=== PATIENT | female | born 1995 | race Caucasian/White ===

== ENCOUNTER 2018-01-15 12:29 | Emergency (ER) | payer BC ==
[~2018-01-15] VITALS: Ht 165.1 cm; Wt 68.2 kg
[2018-01-15 12:33] VITALS: TEMP 36.5; Ht 165.1 cm; Wt 68.2 kg
[2018-01-15] MEDS ORDERED: CIPRO 0.2%/HYDROCORTISONE 1% OTIC SUSP 10 ML BTL OT ONE (13:00)
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
[2018-01-15 14:46] VITALS: BP 88/53; PULSE 76; O2SAT 98
== END 2018-01-15 14:47 | disposition home or self-care (01) ==
LOC: C.EDB 12:30
DX: R07.89 Other chest pain (principal); H60.92 Unspecified otitis externa, left ear; Z87.828 Personal history of other (healed) physical injury and trauma; F17.210 Nicotine dependence, cigarettes, uncomplicated; Z88.2 Allergy status to sulfonamides

== ENCOUNTER 2025-01-16 08:00 | Inpatient (IN) ==
[2025-01-16] MEDS: ACETAMINOPHEN 1,000 MG/100 ML VIAL IV STA ×2 (09:03→13:53)
[2025-01-16] MEDS: dexAMETHasone**PF** 10 MG/ML VIAL IV ONE (09:04)
[2025-01-16] MEDS: METHOCARBAMOL 500 MG TABLET PO STA (09:06)
[2025-01-16 09:11] LABS: Basophils # (auto) 0.06 K/uL (0.00-0.20); Basophils % (auto) 0.9 %; Eosinophils # (auto) 0.09 K/uL (0.00-0.50); Eosinophils % (auto) 1.4 %; Hematocrit (blood only) 39.5 % (37.0-47.0); Hemoglobin 13.5 g/dl (12.0-16.0); Immature Granulocytes # (auto) 0.01 K/uL (0.01-0.20); Immature Granulocytes % (auto) 0.2 %; Lymphocytes # (auto) 1.69 K/uL (1.20-3.40); Lymphocytes % (auto) 26.4 %; Mean Corpuscular Hemoglobin 30.9 pg (25.0-34.0); Mean Corpuscular Hgb Conc 34.2 g/dL (32.0-36.0); Mean Corpuscular Volume 90.4 fL (80.0-100.0); Mean Platelet Volume 10.9 fL (9.4-12.4); Monocytes # (auto) 0.45 K/uL (0.11-0.59); Neutrophils % (auto) 64.1 %; Platelet Count 267 K/uL (130-400); RDW Coefficient of Variation 12.1 % (11.5-14.5); RDW Standard Deviation 40.2 fL (36.4-46.3); Red Blood Count 4.37 M/uL (4.20-5.40)
[2025-01-16 09:26] LABS: Pregnancy Test, Serum Negative (Negative)
--- NOTE | 2025-01-16 09:26 | Emergency Department Note ---
Impression & Plan Cervical radiculopathy, Neck pain on left side, Left arm weakness ED Provider Note ED Provider Note NAME: JARVIS NÚÑEZ AGE:29 SEX: Female : 1995 ARRIVES VIA: Private vehicle INFORMANT: Patient ED PROVIDER(s): Susan Holley DO CHIEF COMPLAINT: Left arm pain and numbness HPI: This is a 29-year-old female who presents emergency room complaining of left neck pain. She states symptoms began a little over a week ago and she thought it was related to stress that she was getting . She states pain was persistent however she was taking Tylenol and ibuprofen with some mild improvement. She states she began to feel a sense of heaviness and weakness in her left arm by Thursday and Thursday. She states yesterday she noticed a sense of "[id number]" in her thumb, pointer, and middle finger on the left hand. She states it now seems as though ibuprofen is not helping as much. Patient states she does have a prior history of low back problems with the prior herniated disc in her low back. She states in addition to the OTC meds she has been trying to massage the area and apply heat without any significant relief. She has pain with movement of the head and pain with moving the arm. No recent trauma or change in activity otherwise. No history of carpal tunnel. Patient states she took ibuprofen at 630 this morning. PAST MEDICAL HISTORY:See Below PAST SURGICAL HISTORY:See Below FAMILY HISTORY:See Below SOCIAL HISTORY:See Below HOME MEDICATIONS:See Below ALLERGIES:See Below VITALS:See Below PHYSICAL EXAMINATION: GENERAL: alert, well appearing, well nourished, no distress, non-toxic EYE EXAM: normal conjunctiva, PERRL and EOM's grossly intact OROPHARYNX: no exudate, no erythema, lips, buccal mucosa, and tongue normal and mucous membranes are moist NECK: supple, no nuchal rigidity, no adenopathy, non-tender, decreased range of motion secondary to pain, symptoms in the left upper extremity are worse with flexion of the head, and turning the head rightward. Patient does have increased hypertonicity in the left paraspinal muscles and into the left trapezius LUNGS: Clear to auscultation. Normal chest wall mechanics, no w/r/r HEART: no murmurs, S1 normal and S2 normal ABDOMEN: abdomen soft, non-tender, normo-active bowel sounds, no masses, no rebound or guarding. BACK: Back is symmetrical on inspection and there is no deformity, midline tenderness at the C/T junction SKIN: no rashes, petechiae, orbruising UPPER EXTREMITIES: upper extremities are grossly normal. FROM, nml pulses b/l. Subjective decreased sensation with light touch along the left upper extremity starting around the elbow and extending distally into the 1st, 2nd and 3rd digits, no evidence of edema, no evidence of trauma, no bony tenderness with palpation, negative Phalen's and Tinels; +2/4 brachial radialis and biceps reflexes bilaterally. Weakness with strength testing to the left upper extremity. LOWER EXTREMITIES: No pitting edema. FROM, nml pulses b/l. NEURO EXAM: Normal sensorium, cranial nerves II-XII grossly intact, normal speech, no facial droop,nogross weakness of arms, no gross weakness of legs. Gross sensation intact. No ataxia. Vital Signs: reviewed and remarkable Differential Diagnosis: Cervical radiculopathy, disc herniation, discitis, occult fracture, musculoskeletal pain, trigeminal neuralgia, brachial plexitis, rotator cuff injury, carpal tunnel, as well as others were considered MEDICAL DECISION MAKING: This is a 29-year-old female who presents emergency department due to concern for worsening left-sided neck pain with accompanying left upper extremity pain, weakness, and paresthesias. Patient was afebrile and hemodynamically stable. No recent trauma. After discussion at bedside, labs drawn and sent, IV established, patient monitored on telemetry. Patient sent for CT of the C-spine initially which did show a large disc extrusion. Patient was started on IV fluids and given IV Tylenol, IV magnesium, IV Decadron, and oral Robaxin. Patient had persistent symptoms. She was offered IV morphine but declined citing a bad reaction to it in the past so IV fentanyl was given. Patient received several doses of this without any significant improvement. I did discuss the CT findings with Dr. Yee of spine who recommended MRI and close outpatient follow-up in the office if her symptoms could be controlled. Due to ongoing symptoms, patient sent for MRI C-spine without contrast. Patient had persistent symptoms. She was given IV Valium additionally, as well as gabapentin. Patient's MRI findings were discussed with Dr. Yee additionally. Due to persistent weakness, paresthesias, and inability to adequately control patient's pain so that she could go home and follow-up as an outpatient, we discussed further inpatient management. Case discussed with the [facility] hospitalist team for further evaluation and management. At this time I do not suspect occult infectious etiology, dissection, occult fracture, or other acute JUDICIAL ADMINISTRATIVE ASSISTANT pathology. Consultation(s): 1132: Discussed with Dr. Yee, spine. Recommends MR C-spine without and close follow-up in the office. 1450: Discussed with Dr. Yee again. 1555: Discussed with Tammie, [facility] Hospitalist team, for additional evaluation and mgmt. ER Treatment Provided: See below Diagnostics Interpreted By Me: -Cardiac Monitoring: An order was placed for continuous cardiac monitoring. The monitor shows a rate of 62 with normal sinus rhythm. -Laboratory studies: As stated above and show below. -Imaging studies: ct cspine - disc extrusion noted, no fx Triage Nursing Note Reviewed Prior/Outside Records Reviewed Past Med/Surg History Problem List (Updated 01/16/25 @ 17:24 by Susan Holley DO) Left arm weakness (Acute) Neck pain on left side (Acute) Cervical radiculopathy (Acute) Medical History (Updated 01/16/25 @ 17:24 by Susan Holley DO) History of pancreatitis gallstone, s/p jaquan Anxiety PTSD (post-traumatic stress disorder) Mild intermittent asthma Surgical History (Updated 01/16/25 @ 16:24 by Donya Cheng PA-C) S/P cholecystectomy Social History (Updated 01/16/25 @ 16:25 by Donya Cheng PA-C) Smoking Status: Never smoker Hx Alcohol Use: Yes marital status: current occupational status: employed 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[employer] Feels Safe at Home: Yes Allergies Allergies Allergy/AdvReac Type Severity Reaction Status Date / Time Bactrim AdvReac Intermediate RASH Unverified 01/15/18 12:44 sulfamethoxazole [Bactrim] AdvReac Intermediate RASH Unverified 01/16/25 10:50 trimethoprim [Bactrim] AdvReac Intermediate RASH Unverified 01/16/25 10:50 morphine AdvReac Unknown Verified 01/16/25 10:50 Home Meds Home Medications Medication Instructions Recorded Confirmed clonazepam 0.5 mg tablet (Klonopin) 0.5 mg PO HS PRN Anxiety 01/16/25 01/16/25 magnesium 200 mg tablet 200 mg PO DAILY 01/16/25 01/16/25 Results & Data (ED) Vital Signs Vital Signs - 24 hr 01/16/25 08:11 01/16/25 08:23 01/16/25 08:36 Temperature 36.8 C Temperature Source Oral Pulse Rate 87 80 Pulse Rate [Apical] 61 Pulse Rhythm [Apical] Pulse Strength [Apical] Respiratory Rate 18 20 Respiratory Effort / Characteristics Non-Labored Respiratory Depth Normal Respiratory Pattern Blood Pressure 125/88 Blood Pressure [Right Arm] 111/69 Blood Pressure Mean 100 Blood Pressure Mean [Right Arm] 83 Blood Pressure Position Sitting Blood Pressure Position [Right Arm] Pulse Oximetry 98 98 Oxygen Delivery Method Room Air Room Air Sepsis Recent Fever Within 48 Hours No Sepsis New/Unexplained Change in Mental Status No Sepsis Action Taken by Nursing No Action Required 01/16/25 09:07 01/16/25 09:50 01/16/25 10:22 Temperature Temperature Source Pulse Rate Pulse Rate [Apical] 72 65 64 Pulse Rhythm [Apical] Pulse Strength [Apical] Respiratory Rate 20 20 20 Respiratory Effort / Characteristics Non-Labored Non-Labored Non-Labored Respiratory Depth Normal Normal Normal Respiratory Pattern Blood Pressure Blood Pressure [Right Arm] 115/75 100/58 L 104/63 Blood Pressure Mean Blood Pressure Mean [Right Arm] 88 72 76 Blood Pressure Position Blood Pressure Position [Right Arm] Pulse Oximetry 98 97 97 Oxygen Delivery Method Room Air Room Air Room Air Sepsis Recent Fever Within 48 Hours Sepsis New/Unexplained Change in Mental Status Sepsis Action Taken by Nursing 01/16/25 10:45 01/16/25 12:22 01/16/25 15:34 Temperature Temperature Source Pulse Rate Pulse Rate [Apical] 53 L 60 70 Pulse Rhythm [Apical] Regular Regular Pulse Strength [Apical] Normal Normal Respiratory Rate 20 20 20 Respiratory Effort / Characteristics Non-Labored Spontaneous Non-Labored Spontaneous Respiratory Depth Normal Normal Respiratory Pattern Regular Regular Blood Pressure Blood Pressure [Right Arm] 116/76 106/59 L 100/65 Blood Pressure Mean Blood Pressure Mean [Right Arm] 89 74 76 Blood Pressure Position Blood Pressure Position [Right Arm] Sitting Sitting Pulse Oximetry 97 95 96 Oxygen Delivery Method Room Air Room Air Room Air Sepsis Recent Fever Within 48 Hours Sepsis New/Unexplained Change in Mental Status Sepsis Action Taken by Nursing 01/16/25 17:29 Temperature Temperature Source Pulse Rate Pulse Rate [Apical] 77 Pulse Rhythm [Apical] Pulse Strength [Apical] Respiratory Rate 20 Respiratory Effort / Characteristics Respiratory Depth Respiratory Pattern Blood Pressure Blood Pressure [Right Arm] 102/62 Blood Pressure Mean Blood Pressure Mean [Right Arm] 75 Blood Pressure Position Blood Pressure Position [Right Arm] Pulse Oximetry 98 Oxygen Delivery Method Sepsis Recent Fever Within 48 Hours Sepsis New/Unexplained Change in Mental Status Sepsis Action Taken by Nursing Laboratory Data 01/16/25 08:57 01/16/25 08:57 Lab Results 01/16/25 Range/Units 08:57 WBC 6.40 (4.8-10.8) K/ul RBC 4.37 (4.20-5.40) M/uL Hgb 13.5 (12.0-16.0) g/dl Hct 39.5 (37.0-47.0) % MCV 90.4 (80.0-100.0) fL MCH 30.9 (25.0-34.0) pg MCHC 34.2 (32.0-36.0) g/dL RDW Std Deviation 40.2 (36.4-46.3) fL RDW Coeff of Francis 12.1 (11.5-14.5) % Plt Count 267 (130-400) K/uL MPV 10.9 (9.4-12.4) fL Immature Gran % (Auto) 0.2 % Neut % (Auto) 64.1 % Lymph % (Auto) 26.4 % Amador % (Auto) 7.0 % Eos % (Auto) 1.4 % Baso % (Auto) 0.9 % Neut # (Auto) 4.10 (1.40-6.50) K/uL Lymph # (Auto) 1.69 (1.20-3.40) K/uL Amador # (Auto) 0.45 (0.11-0.59) K/uL Eos # (Auto) 0.09 (0.00-0.50) K/uL Baso # (Auto) 0.06 (0.00-0.20) K/uL Immature Gran # (Auto) 0.01 (0.01-0.20) K/uL Sodium 139 (136-145) mmol/L Potassium 3.6 (3.5-5.1) mmol/L Chloride 105 (98-107) mmol/L Carbon Dioxide 27 (21-32) mmol/L Anion Gap 7 (3-11) BUN 13 (6-23) mg/dl Creatinine 0.67 (0.6-1.2) mg/dl Est Cr Clr Drug Dosing 122.5 ml/min eGFR 119.76 BUN/Creatinine Ratio 19.4 (10-20) Glucose 93 (70-99(Fasting)) mg/dl Calcium 9.3 (8.6-10.3) mg/dl Total Bilirubin 0.8 (0.2-1.0) mg/dl AST 22 (13-39) U/L ALT 15 (7-52) U/L Alkaline Phosphatase 50 (34-104) U/L Total Protein 7.4 (6.0-8.3) gm/dl Albumin 4.5 (3.4-5.0) gm/dl Globulin 2.9 (2.5-4.0) gm/dl Albumin/Globulin Ratio 1.6 (0.9-2) HCG, Qual Negative (Negative) Administered Medications Fentanyl Citrate (Fentanyl Citrate Pf 100 Mcg/2 Ml Vial) 50 mcg IV Q15M PRN PRN Reason: Pain Stop: 01/30/25 11:36 Last Admin: 01/16/25 12:11 Dose: 50 mcg Documented By: NIC Hydromorphone HCl (Hydromorphone Inj 0.5 Mg/0.5 Ml Syr) 0.5 mg IV Q15M PRN PRN Reason: Pain Stop: 01/30/25 15:27 Last Admin: 01/16/25 16:13 Dose: 0.5 mg Documented By: Admin: 01/16/25 15:31 Dose: 0.5 mg Documented By: RIN Discontinued Medications Dexamethasone Sodium Phosphate (DexamethasonePf 10 Mg/Ml Vial) 10 mg IV NOW ONE Stop: 01/16/25 08:56 Last Admin: 01/16/25 09:04 Dose: 10 mg Documented By: WILLIAM Diazepam (Diazepam 5 Mg/Ml 10ml Vial) 2 mg IV NOW STA Stop: 01/16/25 13:45 Last Admin: 01/16/25 13:53 Dose: 2 mg Documented By: RIN Fentanyl Citrate (Fentanyl Citrate Pf 100 Mcg/2 Ml Vial) 50 mcg IV NOW STA Stop: 01/16/25 10:05 Last Admin: 01/16/25 10:13 Dose: 50 mcg Documented By: WILLIAM Gabapentin (Gabapentin 100 Mg Cap) 100 mg PO NOW STA Stop: 01/16/25 10:05 Last Admin: 01/16/25 10:20 Dose: 100 mg Documented By: WILLIAM Acetaminophen (Ofirmev) 1,000 mg in 100 mls @ 400 mls/hr IV NOW STA Stop: 01/16/25 09:09 Last Infusion: 01/16/25 09:22 Dose: Infused Documented By: Admin: 01/16/25 09:03 Dose: 400 mls/hr Documented By: WILLIAM Acetaminophen (Ofirmev) 1,000 mg in 100 mls @ 400 mls/hr IV NOW STA Stop: 01/16/25 13:57 Last Infusion: 01/16/25 14:08 Dose: Infused Documented By: Admin: 01/16/25 13:53 Dose: 400 mls/hr Documented By: RIN Lorazepam (Lorazepam 2 Mg/1 Ml Vial) 0.5 mg IV NOW STA Stop: 01/16/25 11:38 Last Admin: 01/16/25 12:22 Dose: 0.5 mg Documented By: NIC Methocarbamol (Methocarbamol 500 Mg Tablet) 500 mg PO NOW STA Stop: 01/16/25 08:56 Last Admin: 01/16/25 09:06 Dose: 500 mg Documented By: WILLIAM Morphine Sulfate (Morphine Sulfate 4 Mg/Ml 1 Ml Carp\\Vial) 4 mg IV NOW STA Stop: 01/16/25 10:48 Last Admin: 01/16/25 11:04 Dose: Not Given Documented By: RIN Imaging Data Radiologist's Impression: Cervical Spine CT 01/16/25 08:55 CT SCAN OF THE CERVICAL SPINE CLINICAL HISTORY: Left-sided neck pain. Left upper extremity paresthesias. COMPARISON STUDY: None. TECHNIQUE: CT scan of the cervical spine is performed from the skull base to the upper thoracic spine. Images are reviewed in the axial, sagittal, and coronal planes. IV contrast was not administered for this examination. A dose lowering technique was utilized adhering to the principles of ALARA. CT DOSE: 401.44 mGy.cm FINDINGS: Reversal of the cervical lordosis is present. There are no cervical spine fractures. There are no osseous lesions within the cervical spine. Mild to moderate multilevel disc space narrowing is most pronounced at the C6-C7 level. There is no prevertebral edema. A large left paracentral disc extrusion at C6-C7 measures 1.2 x 1.1 x 0.7 cm. This results in moderate narrowing of the left aspect of the central canal and severe narrowing of the proximal left C6-C7 neural foramen. This disc herniation contains minimal calcification. Central canal and neural foramen are suboptimally assessed given CT technique. No additional disc herniations are identified. IMPRESSION: 1. No acute cervical spine fracture or subluxation. 2. Large left paracentral disc extrusion at C6-C7 with results in severe narrowing of the proximal left C6-C7 neural foramen and moderate narrowing of the left aspect of the central canal. 3. No additional disc herniations identified although suboptimal evaluation of the central canal and neural foramen given CT technique. 4. Mild to moderate multilevel disc space narrowing. 5. Reversal of the cervical lordosis. ACT 112: Negative or not required by law. Electronically signed by: Robert Sheth M.D. 01/16/2025 9:51 AM Cervical Spine MRI 01/16/25 11:37 MR cervical spine wo con HISTORY: 29 years-old Female C6-7 large disc extrusion, LUE weakness/paresthesi acute neck pain COMPARISON: CT cervical spine of same day TECHNIQUE: Multiplanar multisequence MRI of the cervical spine was obtained without IV contrast FINDINGS: Motion degraded exam. Normal signal within the brainstem, cervical and imaged upper thoracic spinal cord. No acute fracture, subluxation, endplate erosion or marrow replacing process. No epidural or paraspinal fluid collections. C2-C3: No central canal or foraminal narrowing. C3-C4: No central canal or foraminal narrowing. C4-C5: No central canal or foraminal narrowing. C5-C6: Mild intervertebral disc space narrowing with uncovertebral hypertrophy and small circumferential annular disc bulge. No central canal or foraminal narrowing. C6-C7: Slight kyphosis centered at this level. There is mild to moderate intervertebral disc space narrowing. Uncovertebral hypertrophy with small circumferential annular disc bulge. There is a large disc extrusion which demonstrates both caudal and cephalad extension measuring up to 1.6 x 0.6 x 1.2 cm in transverse, AP and craniocaudal dimensions. This extends from the left paracentral space into the left lateral recess and left neural foramen. There is deformity upon the adjacent cervical spinal cord with AP dimension of the thecal sac measuring 6 mm. moderate central canal stenosis. Severe left lateral recess narrowing. Moderate narrowing of the proximal left neural foramen. The right neural foramen is patent. C7-T1: No central canal or foraminal narrowing. IMPRESSION: 1. Motion degraded exam. 2. Large C6-C7 left paracentral/left lateral recess disc extrusion redemonstrated causing moderate central canal stenosis with moderate narrowing of the proximal left neural foramen. 3. Mild discogenic degeneration at C5-C6. 4. Normal signal of the cervical spinal cord. 5. No acute fracture. ACT 112: Negative or not required by law. The above report was generated using voice recognition software. It may contain grammatical, syntax or spelling errors. Electronically signed by: Murphy Deng M.D. 01/16/2025 2:06 PM Discharge Plan Visit Data Chief Complaint: Arm Pain Stated Complaint: PAIN/NUMBNESS/TINGLING L ARM ED Provider: Susan Holley Discharge Problem: Cervical radiculopathy, Neck pain on left side, Left arm weakness Patient Disposition: Admitted As Inpatient Discharge Instructions Interventions: ED Discharge Assessment Last Done: 01/16/25 17:33 Forms Stand Alone Forms: [employer] Prescriptions Prescriptions: No Action clonazepam [Klonopin] 0.5 mg Tablet 0.5 mg PO HS PRN (Reason: Anxiety) Rx Instructions: administer 30 minutes before bedtime magnesium 200 mg Tablet 200 mg PO DAILY Referrals Referrals: Hemal Mcleod [Primary Care Provider] -
[2025-01-16 09:29] LABS: Albumin Globulin Ratio 1.6 (0.9-2); Albumin Level 4.5 gm/dl (3.4-5.0); BUN Creatinine Ratio 19.4 (10-20); Bilirubin,Total 0.8 mg/dl (0.2-1.0); Calcium 9.3 mg/dl (8.6-10.3); Creatinine Clr Calc Pharmacy 122.5 ml/min; Globulin 2.9 gm/dl (2.5-4.0); Potassium 3.6 mmol/L (3.5-5.1); Total Protein 7.4 gm/dl (6.0-8.3)
--- NOTE | 2025-01-16 09:52 | CT Scan Report ---
CT SCAN OF THE CERVICAL SPINE CLINICAL HISTORY: Left-sided neck pain. Left upper extremity paresthesias. COMPARISON STUDY: None. TECHNIQUE: CT scan of the cervical spine is performed from the skull base to the upper thoracic spine . Images are reviewed in the axial, sagittal, and coronal planes. IV contrast was not administered fo r this examination. A dose lowering technique was utilized adhering to the principles of ALARA. CT DOSE: 401.44 mGy.cm FINDINGS: Reversal of the cervical lordosis is present. There are no cervical spine fractures. There are no osseous lesions within the cervical spine. Mild to moderate multilevel disc space narrowing is most pronounced at the C6-C7 level. There is no prevertebral edema. A large left paracentral disc ex trusion at C6-C7 measures 1.2 x 1.1 x 0.7 cm. This results in moderate narrowing of the left aspect o f the central canal and severe narrowing of the proximal left C6-C7 neural foramen. This disc herniat ion contains minimal calcification. Central canal and neural foramen are suboptimally assessed given CT technique. No additional disc herniations are identified. IMPRESSION: 1. No acute cervical spine fracture or subluxation. 2. Large left paracentral disc extrusion at C6-C7 with results in severe narrowing of the proximal le ft C6-C7 neural foramen and moderate narrowing of the left aspect of the central canal. 3. No additional disc herniations identified although suboptimal evaluation of the central canal and neural foramen given CT technique. 4. Mild to moderate multilevel disc space narrowing. 5. Reversal of the cervical lordosis. ACT 112: Negative or not required by law. Electronically signed by: Robert Sheth M.D. 01/16/2025 9:51 AM
[2025-01-16] MEDS: fentaNYL citrate PF 100 MCG/2 ML VIAL IV STA (10:13)
[2025-01-16] MEDS: GABAPENTIN 100 MG CAP PO STA (10:20)
[2025-01-16] MEDS: MoRPHine SULFATE 4 MG/ML 1 ML CARP\\VIAL IV STA (11:04)
[2025-01-16] MEDS: fentaNYL citrate PF 100 MCG/2 ML VIAL IV PRN (12:11)
[2025-01-16] MEDS: LORazepam 2 MG/1 ML VIAL IV STA (12:22)
[2025-01-16] MEDS: diazePAM 5 MG/ML 10ML VIAL IV STA (13:53)
--- NOTE | 2025-01-16 14:08 | Magnetic Resonance Report ---
MR cervical spine wo con HISTORY: 29 years-old Female C6-7 large disc extrusion, LUE weakness/paresthesi acute neck pain COMPARISON: CT cervical spine of same day TECHNIQUE: Multiplanar multisequence MRI of the cervical spine was obtained without IV contrast FINDINGS: Motion degraded exam. Normal signal within the brainstem, cervical and imaged upper thoracic spinal c ord. No acute fracture, subluxation, endplate erosion or marrow replacing process. No epidural or par aspinal fluid collections. C2-C3: No central canal or foraminal narrowing. C3-C4: No central canal or foraminal narrowing. C4-C5: No central canal or foraminal narrowing. C5-C6: Mild intervertebral disc space narrowing with uncovertebral hypertrophy and small circumferent ial annular disc bulge. No central canal or foraminal narrowing. C6-C7: Slight kyphosis centered at this level. There is mild to moderate intervertebral disc space na rrowing. Uncovertebral hypertrophy with small circumferential annular disc bulge. There is a large di sc extrusion which demonstrates both caudal and cephalad extension measuring up to 1.6 x 0.6 x 1.2 cm in transverse, AP and craniocaudal dimensions. This extends from the left paracentral space into the left lateral recess and left neural foramen. There is deformity upon the adjacent cervical spinal co rd with AP dimension of the thecal sac measuring 6 mm. moderate central canal stenosis. Severe left l ateral recess narrowing. Moderate narrowing of the proximal left neural foramen. The right neural for amen is patent. C7-T1: No central canal or foraminal narrowing. IMPRESSION: 1. Motion degraded exam. 2. Large C6-C7 left paracentral/left lateral recess disc extrusion redemonstrated causing moderate ce ntral canal stenosis with moderate narrowing of the proximal left neural foramen. 3. Mild discogenic degeneration at C5-C6. 4. Normal signal of the cervical spinal cord. 5. No acute fracture. ACT 112: Negative or not required by law. The above report was generated using voice recognition software. It may contain grammatical, syntax o r spelling errors. Electronically signed by: Murphy Deng M.D. 01/16/2025 2:06 PM
[2025-01-16] MEDS: HYDROmorphone INJ 0.5 MG/0.5 ML SYR IV PRN ×2 (15:31→20:35)
--- NOTE | 2025-01-16 15:57 | History & Physical Report ---
Date of Service January 16, 2025 Assessment & Plan (1) Cervical radiculopathy: (2) Neck pain on left side: (3) Mild intermittent asthma: (4) Anxiety: Plan This is a 29 y/o female with hx of PTSD, anxiety, and mild intermittent asthma who presented to the ED today with progressive neck pain x 8 days. Now with weakness in the left arm, numbness and paresthesias in the left hand/fingers over the last few days. Work-up in the ED reveals large C6-C7 paracentral/left lateral recess disc extrusion causing moderate central canal stenosis with moderate narrowing of the proximal left neural foramen. MRI images personally reviewed. Pt has received multiple doses of IV medication in the ED but pain is still uncontrolled. ED provider spoke with spine surgeon data warehouse consultant who recommended admission for pain control and possible intervention. #Cervical disc extrusion at C6-C7 with moderate central canal stenosis #Cervical radiculopathy - Admit to med surg - Continue steroids - received IV dexamethasone in the ED, will start prednisone 40 mg daily in the AM - Trial of gabapentin 300 mg TID - Scheduled acetaminophen - Trial of Zanaflex for muscle relaxer - Continue PRN IV Dilaudid for pain - PT/OT evaluations to establish current functional status - Consult ortho spine for recommendations #PTSD/Anxiety - Continue prn Klonopin #Mild intermittent asthma - No symptoms at present, only uses prn albuterol inhaler, usually triggered by illness Pt seen and reviewed with collaborating physician, Dr. Infante. Plan of care discussed and as outlined above. Code status: full code DVT prophylaxis: SCDs I spent a total of 75 minutes coordinating, documenting, and providing care for this patient excluding time spent in the performance of separately billed services or time spent by another provider/QHP. Durga Cheng PA-C History of Present Illness Chief Complaint: neck pain, arm weakness Primary Care Provider: Hemal Mcleod This is a 29 y/o female with hx of PTSD, anxiety, and mild intermittent asthma who presented to the ED today with progressive neck pain x 8 days. Pt reports waking up last Thursday with pain in her left neck/upper back that felt like she slept wrong. She took ibuprofen 800 mg and initially had some relief. However, s sukhwinder then, then pain has continued to worsen in severity. It is now to the point that she has to take ibuprofen 800 mg just to be able to get out of bed. She has been alternating acetaminophen and ibuprofen without significant relief. She also tried naproxen, which didn't help. Ice felt like it made things worse so she has been using heat. Also tried various stretches she found online in hopes that something would help. Pain is radiating down her left arm. Over the last few days, she noted weakness in her left arm, specifically noting that she has dropped things even those that are light. Over the last 24-48 hours, she has developed numbness and tingling in the left thumb/2nd/3rd fingers and dorsal hand. She does not recall any prior injury to her neck although she was lifting heavier things over the last week in preparation for her wedding two days ago. She has no history of similar pain in the past. She is right-hand dominant. 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 Allergies Allergy/AdvReac Type Severity Reaction Status Date / Time Bactrim AdvReac Intermediate RASH Unverified 01/15/18 12:44 sulfamethoxazole [Bactrim] AdvReac Intermediate RASH Unverified 01/16/25 10:50 trimethoprim [Bactrim] AdvReac Intermediate RASH Unverified 01/16/25 10:50 morphine AdvReac Unknown Verified 01/16/25 10:50 Home Medications Medication Instructions Recorded Confirmed Type clonazepam 0.5 mg tablet (Klonopin) 0.5 mg PO HS PRN Anxiety 01/16/25 01/16/25 History magnesium 200 mg tablet 200 mg PO DAILY 01/16/25 01/16/25 History Past Med/Surg History Problem List (Updated 01/16/25 @ 17:24 by Susan Holley DO) Left arm weakness (Acute) Neck pain on left side (Acute) Cervical radiculopathy (Acute) Medical History (Updated 01/16/25 @ 17:24 by Susan Holley DO) History of pancreatitis gallstone, s/p jaquan Anxiety PTSD (post-traumatic stress disorder) Mild intermittent asthma Surgical History (Updated 01/16/25 @ 16:24 by Donya Cheng PA-C) S/P cholecystectomy Social History (Updated 01/16/25 @ 16:25 by Donya Cheng PA-C) Smoking Status: Former smoker Tobacco Type: E-cigarettes / Vaping Hx Alcohol Use: Yes Alcohol type: beer and hard liquor Hx Substance Use: No Preferred Language: Prydeinig Communication Ability: Effective Sweat Band Separator Required: No Beliefs That Will Affect Care: None marital status: Current Living Situation: Spouse current occupational status: employed 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[employer] Other Information That Helps Us Care for You: No Feels Safe at Home: Yes Safety Concerns: Feels Safe At This Time Assistive Devices: None Review of Systems Review of Systems: All systems reviewed & are unremarkable except as noted in Subjective Physical Exam Physical Exam: General: awake, alert, appears uncomfortable, frequently shifting positions during exam HEENT: no scleral icterus, moist oral mucosa Neck: supple, trachea midline Heart: RRR, no M/G/R Lungs: CTA bilaterally, no W/R/R Abdomen: soft, NT, +BS Skin: warm, dry, no jaundice or rashes MSK: + tender at base of left posterior neck, upper thoracic, no spinous process tenderness, decreased strength left babbitter, left thumb to finger, left arm flexion/extension Neurologic: +mildly diminished sensation left thumb and left arm in C6/C7 dermatome, left UE reflexes 2+ Results & Data Results & Data Vital Signs (Past 12 Hours) Vital Signs Temp Pulse Pulse Resp BP BP Pulse Ox 01/16/25 15:34 70 20 100/65 96 01/16/25 12:22 60 20 106/59 L 95 01/16/25 10:45 53 L 20 116/76 97 01/16/25 10:22 64 20 104/63 97 01/16/25 09:50 65 20 100/58 L 97 01/16/25 09:07 72 20 115/75 98 01/16/25 08:36 80 01/16/25 08:23 61 20 111/69 98 01/16/25 08:11 36.8 C 87 18 125/88 98 O2 Del Method 01/16/25 15:34 Room Air 01/16/25 12:22 Room Air 01/16/25 10:45 Room Air 01/16/25 10:22 Room Air 01/16/25 09:50 Room Air 01/16/25 09:07 Room Air 01/16/25 08:36 01/16/25 08:23 Room Air 01/16/25 08:11 Room Air Laboratory Results Lab Results 01/16/25 Range/Units 08:57 WBC 6.40 (4.8-10.8) K/ul RBC 4.37 (4.20-5.40) M/uL Hgb 13.5 (12.0-16.0) g/dl Hct 39.5 (37.0-47.0) % MCV 90.4 (80.0-100.0) fL MCH 30.9 (25.0-34.0) pg MCHC 34.2 (32.0-36.0) g/dL RDW Std Deviation 40.2 (36.4-46.3) fL RDW Coeff of Francis 12.1 (11.5-14.5) % Plt Count 267 (130-400) K/uL MPV 10.9 (9.4-12.4) fL Immature Gran % (Auto) 0.2 % Neut % (Auto) 64.1 % Lymph % (Auto) 26.4 % [place] % (Auto) 7.0 % Eos % (Auto) 1.4 % Baso % (Auto) 0.9 % Neut # (Auto) 4.10 (1.40-6.50) K/uL Lymph # (Auto) 1.69 (1.20-3.40) K/uL [place] # (Auto) 0.45 (0.11-0.59) K/uL Eos # (Auto) 0.09 (0.00-0.50) K/uL Baso # (Auto) 0.06 (0.00-0.20) K/uL Immature Gran # (Auto) 0.01 (0.01-0.20) K/uL Sodium 139 (136-145) mmol/L Potassium 3.6 (3.5-5.1) mmol/L Chloride 105 (98-107) mmol/L Carbon Dioxide 27 (21-32) mmol/L Anion Gap 7 (3-11) BUN 13 (6-23) mg/dl Creatinine 0.67 (0.6-1.2) mg/dl Est Cr Clr Drug Dosing 122.5 ml/min eGFR 119.76 BUN/Creatinine Ratio 19.4 (10-20) Glucose 93 (70-99(Fasting)) mg/dl Calcium 9.3 (8.6-10.3) mg/dl Total Bilirubin 0.8 (0.2-1.0) mg/dl AST 22 (13-39) U/L ALT 15 (7-52) U/L Alkaline Phosphatase 50 (34-104) U/L Total Protein 7.4 (6.0-8.3) gm/dl Albumin 4.5 (3.4-5.0) gm/dl Globulin 2.9 (2.5-4.0) gm/dl Albumin/Globulin Ratio 1.6 (0.9-2) HCG, Qual Negative (Negative) Diagnostic Findings Cervical Spine CT 01/16/25 08:55 CT SCAN OF THE CERVICAL SPINE CLINICAL HISTORY: Left-sided neck pain. Left upper extremity paresthesias. COMPARISON STUDY: None. TECHNIQUE: CT scan of the cervical spine is performed from the skull base to the upper thoracic spine. Images are reviewed in the axial, sagittal, and coronal planes. IV contrast was not administered for this examination. A dose lowering technique was utilized adhering to the principles of ALARA. CT DOSE: 401.44 mGy.cm FINDINGS: Reversal of the cervical lordosis is present. There are no cervical spine fractures. There are no osseous lesions within the cervical spine. Mild to moderate multilevel disc space narrowing is most pronounced at the C6-C7 level. There is no prevertebral edema. A large left paracentral disc extrusion at C6- C7 measures 1.2 x 1.1 x 0.7 cm. This results in moderate narrowing of the left aspect of the central canal and severe narrowing of the proximal left C6-C7 neural foramen. This disc herniation contains minimal calcification. Central canal and neural foramen are suboptimally assessed given CT technique. No additional disc herniations are identified. IMPRESSION: 1. No acute cervical spine fracture or subluxation. 2. Large left paracentral disc extrusion at C6-C7 with results in severe narrowing of the proximal left C6-C7 neural foramen and moderate narrowing of the left aspect of the central canal. 3. No additional disc herniations identified although suboptimal evaluation of the central canal and neural foramen given CT technique. 4. Mild to moderate multilevel disc space narrowing. 5. Reversal of the cervical lordosis. ACT 112: Negative or not required by law. Electronically signed by: Robert Sheth M.D. 01/16/2025 9:51 AM Cervical Spine MRI 01/16/25 11:37 MR cervical spine wo con HISTORY: 29 years-old Female C6-7 large disc extrusion, LUE weakness/paresthesi acute neck pain COMPARISON: CT cervical spine of same day TECHNIQUE: Multiplanar multisequence MRI of the cervical spine was obtained without IV contrast FINDINGS: Motion degraded exam. Normal signal within the brainstem, cervical and imaged upper thoracic spinal cord. No acute fracture, subluxation, endplate erosion or marrow replacing process. No epidural or paraspinal fluid collections. C2-C3: No central canal or foraminal narrowing. C3-C4: No central canal or foraminal narrowing. C4-C5: No central canal or foraminal narrowing. C5-C6: Mild intervertebral disc space narrowing with uncovertebral hypertrophy and small circumferential annular disc bulge. No central canal or foraminal narrowing. C6-C7: Slight kyphosis centered at this level. There is mild to moderate intervertebral disc space narrowing. Uncovertebral hypertrophy with small circumferential annular disc bulge. There is a large disc extrusion which demonstrates both caudal and cephalad extension measuring up to 1.6 x 0.6 x 1.2 cm in transverse, AP and craniocaudal dimensions. This extends from the left paracentral space into the left lateral recess and left neural foramen. There is deformity upon the adjacent cervical spinal cord with AP dimension of the thecal sac measuring 6 mm. moderate central canal stenosis. Severe left lateral recess narrowing. Moderate narrowing of the proximal left neural foramen. The right neural foramen is patent. C7-T1: No central canal or foraminal narrowing. IMPRESSION: 1. Motion degraded exam. 2. Large C6-C7 left paracentral/left lateral recess disc extrusion redemonstrated causing moderate central canal stenosis with moderate narrowing of the proximal left neural foramen. 3. Mild discogenic degeneration at C5-C6. 4. Normal signal of the cervical spinal cord. 5. No acute fracture. ACT 112: Negative or not required by law. The above report was generated using voice recognition software. It may contain grammatical, syntax or spelling errors. Electronically signed by: Murphy Deng M.D. 01/16/2025 2:06 PM Medications Administered Fentanyl Citrate (Fentanyl Citrate Pf 100 Mcg/2 Ml Vial) 50 mcg IV Q15M PRN PRN Reason: Pain Stop: 01/30/25 11:36 Last Admin: 01/16/25 12:11 Dose: 50 mcg Documented By: NIC Hydromorphone HCl (Hydromorphone Inj 0.5 Mg/0.5 Ml Syr) 0.5 mg IV Q15M PRN PRN Reason: Pain Stop: 01/30/25 15:27 Last Admin: 01/16/25 15:31 Dose: 0.5 mg Documented By: RIN Discontinued Medications Dexamethasone Sodium Phosphate (DexamethasonePf 10 Mg/Ml Vial) 10 mg IV NOW ONE Stop: 01/16/25 08:56 Last Admin: 01/16/25 09:04 Dose: 10 mg Documented By: WILLIAM Diazepam (Diazepam 5 Mg/Ml 10ml Vial) 2 mg IV NOW STA Stop: 01/16/25 13:45 Last Admin: 01/16/25 13:53 Dose: 2 mg Documented By: RIN Fentanyl Citrate (Fentanyl Citrate Pf 100 Mcg/2 Ml Vial) 50 mcg IV NOW STA Stop: 01/16/25 10:05 Last Admin: 01/16/25 10:13 Dose: 50 mcg Documented By: WILLIAM Gabapentin (Gabapentin 100 Mg Cap) 100 mg PO NOW STA Stop: 01/16/25 10:05 Last Admin: 01/16/25 10:20 Dose: 100 mg Documented By: WILLIAM Acetaminophen (Ofirmev) 1,000 mg in 100 mls @ 400 mls/hr IV NOW STA Stop: 01/16/25 09:09 Last Infusion: 01/16/25 09:22 Dose: Infused Documented By: Admin: 01/16/25 09:03 Dose: 400 mls/hr Documented By: WILLIAM Acetaminophen (Ofirmev) 1,000 mg in 100 mls @ 400 mls/hr IV NOW STA Stop: 01/16/25 13:57 Last Infusion: 01/16/25 14:08 Dose: Infused Documented By: Admin: 01/16/25 13:53 Dose: 400 mls/hr Documented By: RNI Lorazepam (Lorazepam 2 Mg/1 Ml Vial) 0.5 mg IV NOW STA Stop: 01/16/25 11:38 Last Admin: 01/16/25 12:22 Dose: 0.5 mg Documented By: NIC Methocarbamol (Methocarbamol 500 Mg Tablet) 500 mg PO NOW STA Stop: 01/16/25 08:56 Last Admin: 01/16/25 09:06 Dose: 500 mg Documented By: WILLIAM Morphine Sulfate (Morphine Sulfate 4 Mg/Ml 1 Ml Carp\Vial) 4 mg IV NOW STA Stop: 01/16/25 10:48 Last Admin: 01/16/25 11:04 Dose: Not Given Documented By: RIN Supervising Physician Co-Signing Physician Notes I have reviewed the advanced practitioner's documentation, and I agree with, and take responsibility for the plan of care I spent a total of 30 minutes coordinating, documenting, and providing care for this patient excluding time spent in the performance of separately billed services. All of the aforementioned completed while collaborating with the assigned advanced practitioner for a full treatment plan (3) Mild intermittent asthma Asthma complication type: uncomplicated Qualified Code(s): J45.20 - Mild intermittent asthma, uncomplicated
[2025-01-16] MEDS ORDERED: clonazePAM 0.5 MG TAB PO PRN (18:10)
[2025-01-16] MEDS: tiZANidine HCL 4 MG TABLET PO SCH (20:35)
[2025-01-16] MEDS: GABAPENTIN 300 MG CAP PO SCH (20:35)
[2025-01-16] MEDS: ACETAMINOPHEN 1,000 MG/100 ML VIAL IV SCH (22:21)
[2025-01-16] MEDS: DICLOFENAC SOD 1% GEL 100 GM TUBE EXT PRN (22:27)
[2025-01-17] MEDS: ceFAZolin 2000MG 2,000 MG/15 ML SYR IV ONE (01:51)
[2025-01-17] MEDS: HYDROmorphone INJ 0.5 MG/0.5 ML SYR IV PRN (03:23)
[2025-01-17] MEDS ORDERED: ACETAMINOPHEN 325 MG TAB PO PRN (04:55)
--- NOTE | 2025-01-17 08:05 | Orthopedic Consultation ---
Date of Consultation January 17, 2025 Assessment & Plan (1) Herniation of cervical intervertebral disc with radiculopathy: Assessment cervical disc herniation C6-C7 with radiculopathy and progressive neurologic deficit. Plan along discussion the patient this morning and her reviewing MRI CAT scan findings and clinical presentation. She is refractory to pain control and IV narcotics. She has progressive weakness involving left upper extremity and we are considering surgical invention. I would recommend an emergent anterior cervical discectomy and fusion C6-C7 to adequately decompress the spinal canal and neural foramen on the left. Risk benefits pros cons and alternatives were all in detail. Risk include but not limited to anesthesia blindness stroke paralysis nerve damage blood loss requiring transfusion infection requiring repression dysphonia dysphagia. Best hope to be marked improvement of her radicular pain and hopefully improvement of her strength with therapy. History of Present Illness Reason for Consultation: Left arm pain and weakness Attending Physician: Chuck Griffiths DO History of Present Illness This is a 29-year-old female presents the emergency room yesterday with a marked decline in status. She states Thursday she started experiencing left arm pain and numbness that is progressed throughout Thursday. She is noting significant weakness to the left arm. She has been refractory to IV fentanyl and Dilaudid for any pain control. Right upper extremity is asymptomatic. She denies any specific trauma fall or event. Steroids provided within the have provided little relief. Pain is described involving the left intrascapular region down the arm into her fingers. Allergies Allergy/AdvReac Type Severity Reaction Status Date / Time Bactrim AdvReac Intermediate RASH Unverified 01/15/18 12:44 sulfamethoxazole [Bactrim] AdvReac Intermediate RASH Unverified 01/16/25 10:50 trimethoprim [Bactrim] AdvReac Intermediate RASH Unverified 01/16/25 10:50 morphine AdvReac Unknown Verified 01/16/25 10:50 Home Medications Medication Instructions Recorded Confirmed Type clonazepam 0.5 mg tablet (Klonopin) 0.5 mg PO HS PRN Anxiety 01/16/25 01/16/25 History magnesium 200 mg tablet 200 mg PO DAILY 01/16/25 01/16/25 History Patient History Medical History (Updated 01/17/25 @ 08:04 by Hiren Yee DO) History of pancreatitis gallstone, s/p jaquan Anxiety PTSD (post-traumatic stress disorder) Mild intermittent asthma Surgical History (Updated 01/16/25 @ 16:24 by Donya Cheng PA-C) S/P cholecystectomy Social History (Updated 01/16/25 @ 16:25 by Donya Cheng PA-C) Smoking Status: Former smoker Tobacco Type: E-cigarettes / Vaping Hx Alcohol Use: Yes Alcohol type: beer and hard liquor Hx Substance Use: No Preferred Language: Fijian Communication Ability: Effective Water Hauler Required: No Beliefs That Will Affect Care: None marital status: Current Living Situation: Spouse current occupational status: employed 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 She is tearful secondary to pain but cooperative. She is able to sit up with assistance. She exhibits a markedly positive Spurling sign to the left. Negative to the right. Cervical flexion is tolerable. She exhibits a 4/5 left biceps 3+ left triceps with weak grasp. She is a 5/5 on the right. There is sensory deficits and absent deep tendon reflexes the left upper extremity. No Bell sign.
[2025-01-17] MEDS: MAGNESIUM OXIDE 400 MG TAB PO SCH (09:38)
[2025-01-17] MEDS: predniSONE 20 MG TAB PO SCH (09:39)
[2025-01-17] MEDS ORDERED: HYDROmorphone INJ 0.5 MG/0.5 ML SYR IV PRN ×2 (11:20→18:09)
[2025-01-17] MEDS ORDERED: clonazePAM 0.5 MG TAB PO PRN (11:20)
--- NOTE | 2025-01-17 11:22 | Hospitalist Progress Note ---
Date of Service January 17, 2025 Assessment & Plan (1) Cervical radiculopathy: (2) Mild intermittent asthma: (3) Anxiety: Plan Patient is a 29-year-old female with severe radiculopathy associated with a C6- C7 herniated disc. Continue medical management for symptom control Reviewed orthopedic evaluation, anticipated surgical intervention later on today Increase patient's Klonopin frequency to 3 times daily to manage some of her anxiety associated with the diagnosis and anticipated surgery. at bedside updated Admission and Anticipated Discharge Date Admission Date: January 16, 2025 Subjective Patient with still a fair amount of symptoms. Medications are controlling her pain. Does state that her anxiety is getting a little bit more increased now that she is anticipating surgery. Physical Exam Physical Exam: Constitutional: Alert HEENT: Mucous membranes moist. Lungs: Clear to auscultation, decreased, no wheezes rales or rhonchi CV: S1-S2, regular Abdomen: Soft, nontender, nondistended Extremities: No significant edema Neuro: Some weakness and paresthesias left upper extremity Psych: Cooperative, normal mood Results & Data Results & Data Vital Signs (Past 12 Hours) Vital Signs Temp Pulse Resp BP Pulse Ox O2 Del Method 01/17/25 08:04 36.5 C 87 16 115/80 100 Room Air (2) Mild intermittent asthma Asthma complication type: uncomplicated Qualified Code(s): J45.20 - Mild i ntermittent asthma, uncomplicated
[2025-01-17] MEDS: HYDROmorphone HCL 2 MG TAB PO PRN (11:36)
--- NOTE | 2025-01-17 12:42 | Anesthesiology Consultation ---
Date of Service January 17, 2025 Assessment & Plan (1) Encounter for pre-operative examination: Chart Review Chart Review: Acceptable Risk for Surgery History Surgery Operation Date: 01/17/25 11:50 Proposed Procedures p C6-C7 Anterior Cervical Discectomy Fusion - Hiren Yee DO Height/Weight Height: 5 ft 5 in Weight: 73.9 kg Allergies Allergy/AdvReac Type Severity Reaction Status Date / Time Bactrim AdvReac Intermediate RASH Unverified 01/15/18 12:44 sulfamethoxazole [Bactrim] AdvReac Intermediate RASH Unverified 01/16/25 10:50 trimethoprim [Bactrim] AdvReac Intermediate RASH Unverified 01/16/25 10:50 morphine AdvReac Unknown Verified 01/16/25 10:50 Medications Home Medications Medication Instructions Recorded Confirmed Last Taken clonazepam 0.5 mg tablet (Klonopin) 0.5 mg PO HS PRN Anxiety 01/16/25 01/16/25 01/15/25 magnesium 200 mg tablet 200 mg PO DAILY 01/16/25 01/16/25 01/16/25 Active Medications Generic Name Dose Route Start Last Admin Trade Name Freq PRN Reason Stop Dose Admin Diclofenac Sodium 2 gm 01/16/25 21:56 01/16/25 22:27 Diclofenac Sod 1% Gel 100 Gm Tube EXT 02/15/25 21:59 2 gm BID PRN Administration back pain Protocol Gabapentin 300 mg 01/16/25 21:00 01/17/25 09:40 Gabapentin 300 Mg Cap PO 02/15/25 20:59 300 mg TID GERMAN Administration Hydromorphone HCl 2 mg 01/17/25 11:19 01/17/25 11:36 Hydromorphone Hcl 2 Mg Tab PO 01/31/25 11:18 2 mg Q4H PRN Administration Mod-Sev Pain (Scale 4-10) Magnesium Oxide 200 mg 01/17/25 09:00 01/17/25 09:38 Magnesium Oxide 400 Mg Tab PO 02/16/25 08:59 Not Given DAILY GERMAN Prednisone 40 mg 01/17/25 09:00 01/17/25 09:39 Prednisone 20 Mg Tab PO 02/16/25 08:59 40 mg DAILY GERMAN Administration Tizanidine HCl 2 mg 01/16/25 21:00 01/17/25 09:40 Tizanidine Hcl 4 Mg Tablet PO 02/15/25 20:59 2 mg TID GERMAN Administration Past Medical History Medical History History of pancreatitis gallstone, s/p jaquan Anxiety PTSD (post-traumatic stress disorder) Mild intermittent asthma Past Surgical History Surgical History S/P cholecystectomy Social History Smoking Status: Former smoker Hx Alcohol Use: Yes Alcohol type: beer and hard liquor alcohol intake frequency: a few times a month Hx Substance Use: No substance use type: does not use Physical Exam Vital Signs Last Vital Signs Temp 36.5 C 01/17/25 08:04 Pulse 87 01/17/25 08:04 Resp 16 01/17/25 08:04 BP 115/80 01/17/25 08:04 Pulse Ox 100 01/17/25 08:04 O2 Del Method Room Air 01/17/25 08:04 Testing Laboratory Results 01/16/25 08:57 01/16/25 08:57
[2025-01-17] MEDS ORDERED: DEXAMETHASONE SOD INJ 4 MG/ML VIAL ONE (13:09)
[2025-01-17] MEDS ORDERED: PROPOFOL IV EMULSION 10 MG/ML 20 ML VIAL IV ONE (13:09)
[2025-01-17] MEDS ORDERED: ONDANSETRON INJ 2 MG/ML 2 ML VIAL ONE (13:09)
[2025-01-17] MEDS ORDERED: GLYCOPYRROLATE 0.2 MG/ML VIAL ONE (13:09)
[2025-01-17] MEDS ORDERED: ROCURONIUM BROMIDE 10 MG/ML 5 ML VIAL IV ONE (13:09)
[2025-01-17] MEDS ORDERED: fentaNYL citrate PF 100 MCG/2 ML VIAL ONE ×2 (13:09→16:21)
[2025-01-17] MEDS ORDERED: MIDAZOLAM HCL 1 MG/ML 2ML VIAL ONE (13:09)
[2025-01-17] MEDS ORDERED: LIDOCAINE 2% 2 ML VIAL/AMP(20MG/ML) INFIL ONE (13:09)
[2025-01-17] MEDS ORDERED: SUGAMMADEX SODIUM 200 MG/2 ML VIAL IV ONE (13:13)
[2025-01-17] MEDS ORDERED: PROMETHAZINE HCL 6.25 MG in SODIUM CHLORIDE 0.9% 50 ML IV PRN (13:32)
[2025-01-17] MEDS ORDERED: ATROPINE SULFATE 0.1 MG/ML 10ML SYR IV PRN (13:32)
[2025-01-17] MEDS: ACETAMINOPHEN 500 MG TAB PO SCH (13:35)
[2025-01-17] MEDS: LACTATED RINGER'S 1,000 ML IV SCH (13:36)
--- NOTE | 2025-01-17 14:39 | History & Physical Bridge Note ---
Date of Service January 17, 2025 History & Physical Bridge Note I have examined the patient, reviewed the History & Physical and in the interval since the performance of the History & Physical I have noted the following changes of clinical significance: no changes noted Patient presents with severe lumbar radiculopathy affecting left upper extremity. She has concordant massive disc herniation C6-7 on the left. In light of her progressive neurologic decline and lack of improvement with steroids and IV narcotics and recommend emergent anterior cervical discectomy and fusion C6-C7.
[2025-01-17] MEDS: ceFAZolin 2,000 MG/15 ML IV PUSH IV ONE (16:06)
[2025-01-17] MEDS: ceFAZolin 330 MG/ML 1 GM VIAL ONE (16:06)
[2025-01-17] MEDS: FLOSEAL HEMOSTATIC MATRIX 10ML TOP ONE (16:24)
--- NOTE | 2025-01-17 16:25 | Operative Report ---
Post Operative Report Pre & Post Diagnosis Operation Date: 01/17/25 11:50 Pre-Op Diagnosis: Herniation of cervical intervertebral disc with radiculopathy Post-Op Diagnosis: Herniation of cervical intervertebral disc with radiculopathy I identified the patient and participated in the time-out.: Yes Procedure Operation Date: 01/17/25 11:50 Actual Procedures #1 anterior cervical discectomy with bilateral foraminotomies and excision of herniated disc fragment C6-C7. #2 anterior cervical arthrodesis C6-7. #3 placement of Spira 8 mm cage filled with os design bone graft C6-C7. #4 application of K2 and plate and screws across C6-C7. Surgeon Hiren Yee, Manager Editorial Hannah Carrera Estimated Blood Loss 10 Findings Consistent with Post-Op Diagnosis Specimens None Indications This is a 29-year-old female the presents with a massive disc herniation C6-C7 and progressive neurologic deficit here for emergent surgery. Description of Procedure Patient was met with identified informed consent obtained. Patient was then taken to the operative suite underwent intubation placed in spine position ingestible head Marc head ordered. All bony promises well-padded eyes inspected to ensure no external pressure placed upon them. This point the anterior cervical spine was prepped and draped in normal sterile fashion. With the assistance of fluoroscopy identified the C6-C7 disc base and a transverse incision was placed along the right anterior aspect of the cervical spine ove rlying his region. Blunt dissection with the assistance of bipolar electrocautery is then performed down to and exposing the anterior cervical spine from C6-C7. Self-retaining retractors placed. Then performed a complete discectomy of C6-C7 out to the uncovertebral joints bilaterally. [place] distracting pins utilized to assist in visualization. Removed all posterior annular fibers and identified extensive amounts of disc material to the left side of the canal and into the left neuroforamen. They removed in their entirety. The area was explored several times to ensure all fragments addre ssed. The endplates were then burred to subcortical bleeding bone and an 8 mm spiral cage filled with os design bone graft tapped in position. Distracting apparatus was removed and a K2 M plate and screws applied with the assistance of fluoroscopy. The incision was then eliud irrigated explored to ensure no damage to surrounding structures or remaining bleeding. 10 round DEVEN drain inserted. The incision was then closed with 2 Vicryl in the fascia and a 4 Monocryl for final skin closure. Steri-Strips sterile dressing placed. Patient waken taken to PACU in stable condition. Please note spinal cord monitoring was utilized at the procedure no changes noted. Hannah Carrera was present at the entire surgeon while the patient positioning complex portion of the surgery and final skin closure. I attest to the content of the Intraoperative Record and any orders documented therein. Any exceptions are noted below.
[2025-01-17] MEDS: HYDROmorphone INJ 1 MG/ML SYRINGE IV PRN (16:53)
[2025-01-17] MEDS ORDERED: fentaNYL citrate PF 100 MCG/2 ML VIAL IV PRN (17:11)
[2025-01-17] MEDS: fentaNYL citrate PF 100 MCG/2 ML VIAL ONE (17:13)
[2025-01-17] MEDS: ACETAMINOPHEN 1,000 MG/100 ML VIAL IV STA (17:15)
[2025-01-17] MEDS: ACETAMINOPHEN 1000 MG/100 ML IV IV ONE (17:24)
[2025-01-17] MEDS ORDERED: hydrOXYzine HCl 25 MG TAB PO PRN (18:09)
[2025-01-17] MEDS ORDERED: dexAMETHasone 8 MG in SYRINGE 0 ML IV PRN (18:09)
[2025-01-17] MEDS ORDERED: PROMETHAZINE 12.5 MG/50.5 ML BAG IV PRN (18:09)
[2025-01-17] MEDS ORDERED: ALUMINUM/MAGNESIUM SUSP 30 ML UDC PO PRN (18:09)
[2025-01-17] MEDS ORDERED: NALOXONE HCL 0.4 MG/1 ML VIAL/CARP IV PRN (18:09)
[2025-01-17] MEDS ORDERED: ONDANSETRON 4 MG OD TAB PO PRN (18:09)
[2025-01-17] MEDS ORDERED: DO NOT ADMINISTER FLU VACCINE PRN (18:09)
[2025-01-17] MEDS ORDERED: FAMOTIDINE 20 MG TAB PO PRN (18:09)
[2025-01-17] MEDS ORDERED: DO NOT ADMINISTER PNEUMOCOCCAL VACCINE PRN (18:09)
[2025-01-17] MEDS ORDERED: METOCLOPRAMIDE HCL INJ 5 MG/ML 2 ML VIAL IV PRN (18:09)
[2025-01-17] MEDS ORDERED: SOD PHOSPHATE/SOD BIPHOSPHATE ENEMA 132 ML BTL PR PRN (18:09)
[2025-01-17] MEDS ORDERED: LORazepam 2 MG/1 ML VIAL IV PRN (18:09)
[2025-01-17] MEDS ORDERED: RACEPINEPHRINE 2.25% NEBU SOLN 0.5 ML VIAL INH PRN (18:09)
[2025-01-17] MEDS ORDERED: LORazepam 0.5 MG TAB PO PRN (18:09)
[2025-01-17] MEDS ORDERED: ONDANSETRON INJ 2 MG/ML 2 ML VIAL IV PRN (18:09)
[2025-01-17] MEDS ORDERED: MAGNESIUM HYDROXIDE SUSP 30 ML UDC PO PRN (18:09)
[2025-01-17] MEDS ORDERED: ACETAMINOPHEN 1,000 MG/100 ML VIAL IV PRN (18:09)
[2025-01-17] MEDS ORDERED: bisacodyL 10 MG SUPP PR PRN (18:09)
[2025-01-17] MEDS ORDERED: diphenhydrAMINE Capsule 25 MG CAP PO PRN (18:09)
[2025-01-17] MEDS: DOCUSATE SODIUM/SENNA 50/8.6MG TAB PO SCH (20:21)
--- NOTE | 2025-01-17 21:18 | Anesthesiology Progress Note ---
Date of Service January 17, 2025 Anesthesia Post Procedure Vital Signs Vital Signs: Temp Pulse Pulse Resp BP BP Pulse Ox 01/17/25 20:10 36.2 C L 63 18 109/72 95 01/17/25 19:10 36.4 C L 57 L 18 111/72 97 01/17/25 19:06 36.5 C 63 18 102/63 97 01/17/25 18:36 36.7 C 68 17 105/67 96 01/17/25 18:09 68 18 96 01/17/25 17:55 69 18 100/58 L 94 01/17/25 17:45 36.6 C 79 19 110/62 97 01/17/25 17:35 60 16 106/65 96 01/17/25 17:25 76 17 114/53 L 97 01/17/25 17:15 68 20 115/68 91 01/17/25 17:05 58 L 15 103/62 93 01/17/25 16:55 98 H 14 120/71 99 01/17/25 16:45 67 14 106/60 99 01/17/25 16:38 36.1 C L 72 20 99/52 L 98 01/17/25 13:05 36.6 C 59 L 18 104/54 L 96 01/17/25 08:04 36.5 C 87 16 115/80 100 O2 Del Method O2 Flow Rate 01/17/25 20:10 Nasal Cannula 2 01/17/25 19:10 Nasal Cannula 3 01/17/25 19:06 Nasal Cannula 2 01/17/25 18:36 Nasal Cannula 2 01/17/25 18:09 Nasal Cannula 2 01/17/25 17:55 Nasal Cannula 2 01/17/25 17:45 Nasal Cannula 2 01/17/25 17:35 Nasal Cannula 2 01/17/25 17:25 Nasal Cannula 2 01/17/25 17:15 Room Air 01/17/25 17:05 Room Air 01/17/25 16:55 Room Air 01/17/25 16:45 Oxymask 4 01/17/25 16:38 Oxymask 6 01/17/25 13:05 Room Air 01/17/25 08:04 Room Air Pain Intensity Neck: Pain Intensity: 4 Transfer of Care Handoff Completed per policy Notes Mental Status: alert / awake / arousable Patient Amnestic to Procedure: Yes Nausea / Vomiting: adequately controlled Pain: adequately controlled Airway Patency, RR, SpO2: stable & adequate BP & HR: stable & adequate Hydration State: stable & adequate Anesthetic Complications: no major complications apparent
[2025-01-17] MEDS: ceFAZolin 2000MG 2,000 MG/15 ML SYR IV SCH (23:20)
[2025-01-18] MEDS: SODIUM CHLORIDE 0.9% 500 ML IV ONE (00:13)
[2025-01-18] MEDS: SODIUM CHLORIDE 0.9% 1,000 ML IV SCH (01:23)
[2025-01-18] MEDS: ACETAMINOPHEN 500 MG TAB PO PRN (01:30)
[2025-01-18] MEDS: oxyCODONE HCL IR 5 MG TAB (IMMEDIATE RELEASE) PO PRN (04:34)
[2025-01-18] MEDS: POLYETHYLENE (MIRALAX) 17 GM PACK PO SCH (05:21)
--- NOTE | 2025-01-18 07:37 | Fluoroscopy Report ---
FL cervical 2-3V CLINICAL HISTORY: C6-C7 COMPARISON STUDY: Cervical spine MRI and CT January 16, 2025. Fluoroscopy time: 11 seconds. Number of fluoroscopic images: 2 Ka,r: 3.15 mGy. FINDINGS: Fluoroscopy was provided during C6-C7 anterior discectomy and fusion. Linear radiodensity w ithin the operative bed on the initial image is not present on the subsequent image. Surgical drain i s in place. Endotracheal tube is partially imaged. IMPRESSION: Fluoroscopy provided during C6-C7 anterior discectomy and fusion. ACT 112: Negative or not required by law. Electronically signed by: Robert Sheth M.D. 01/18/2025 7:35 AM
[2025-01-18 07:46] LABS: Basophils # (auto) 0.02 K/uL (0.00-0.20); Basophils % (auto) 0.2 %; Eosinophils # (auto) 0.01 K/uL (0.00-0.50); Eosinophils % (auto) 0.1 %; Hematocrit (blood only) 31.7 % (37.0-47.0); Hemoglobin 10.8 g/dl (12.0-16.0); Immature Granulocytes # (auto) 0.04 K/uL (0.01-0.20); Immature Granulocytes % (auto) 0.3 %; Lymphocytes # (auto) 1.72 K/uL (1.20-3.40); Lymphocytes % (auto) 14.2 %; Mean Corpuscular Hemoglobin 31.4 pg (25.0-34.0); Mean Corpuscular Hgb Conc 34.1 g/dL (32.0-36.0); Mean Corpuscular Volume 92.2 fL (80.0-100.0); Mean Platelet Volume 11.3 fL (9.4-12.4); Monocytes # (auto) 0.52 K/uL (0.11-0.59); Monocytes % (auto) 4.3 %; Neutrophils # (auto) 9.82 K/uL (1.40-6.50); Neutrophils % (auto) 80.9 %; Platelet Count 214 K/uL (130-400); RDW Coefficient of Variation 12.4 % (11.5-14.5); RDW Standard Deviation 41.4 fL (36.4-46.3); Red Blood Count 3.44 M/uL (4.20-5.40); White Blood Count 12.13 K/ul (4.8-10.8)
[2025-01-18] MEDS: dexAMETHasone 6 MG in SYRINGE 0 ML IV SCH (08:06)
[2025-01-18 08:08] LABS: BUN Creatinine Ratio 11.5 (10-20); Calcium 8.3 mg/dl (8.6-10.3); Creatinine Clr Calc Pharmacy 157.8 ml/min; Magnesium 1.7 mg/dl (1.7-2.4); Potassium 3.6 mmol/L (3.5-5.1)
[2025-01-18] MEDS: traMADol HCL 50 MG TABLET PO PRN (09:29)
--- NOTE | 2025-01-18 10:01 | Orthopedic Progress Note ---
Date of Service January 18, 2025 Assessment & Plan (1) Herniation of cervical intervertebral disc with radiculopathy: Plan: At this time we will encourage her to be up and ambulating. She may remove her collar when in bed and eating. Discontinue drain and dressing today. Possibly home today pending stability. Admission and Anticipated Discharge Date Admission Date: January 16, 2025 Subjective Patient is complaining of neck pain her radicular symptoms have improved. Some continued numbness in the left fingers. Physical Exam Physical Exam: On exam she has good strength testing upper extremities. Dressings in place. Results & Data Vital Signs (Past 12 Hours) Vital Signs Temp Pulse Pulse Resp BP Pulse Ox O2 Del Method 01/18/25 09:10 115/79 01/18/25 09:10 36.7 C 72 18 115/79 98 Room Air 01/18/25 07:27 68 15 97 Room Air 01/18/25 07:10 36.7 C 54 L 18 97/63 L 96 Room Air 01/18/25 05:09 36.5 C 51 L 18 109/72 97 Nasal Cannula 01/18/25 03:53 68 18 98 Nasal Cannula 01/18/25 03:12 36.6 C 57 L 18 100/63 98 Nasal Cannula 01/18/25 01:47 121/81 01/18/25 01:10 36.7 C 55 L 18 109/68 97 Nasal Cannula 01/18/25 00:52 105/68 01/18/25 00:49 68 18 97/65 L 96 Nasal Cannula 01/17/25 23:26 69 16 93 Nasal Cannula 01/17/25 23:10 36.8 C 60 18 98/63 L 96 Nasal Cannula O2 Flow Rate 01/18/25 09:10 01/18/25 09:10 01/18/25 07:27 01/18/25 07:10 01/18/25 05:09 2 01/18/25 03:53 2 01/18/25 03:12 2 01/18/25 01:47 01/18/25 01:10 01/18/25 00:52 01/18/25 00:49 2 01/17/25 23:26 2 01/17/25 23:10 2
--- NOTE | 2025-01-18 10:56 | Hospitalist Progress Note ---
Date of Service January 18, 2025 Assessment & Plan (1) Cervical radiculopathy: (2) Mild intermittent asthma: (3) Anxiety: (4) Acute blood loss as cause of postoperative anemia: Plan Patient with severe cervical radiculopathy/left upper extremity paresthesias and weakness due to herniated nucleus pulposus C6-C7. Status post cervical spine decompression. Continue postoperative care as directed by surgery Oral pain control Continue anti-inflammatories Replace potassium Monitor hemoglobin, expected blood loss post cervical spine surgery. Therapies Admission and Anticipated Discharge Date Admission Date: January 16, 2025 Subjective Patient with a fair amount of pain postoperatively. Paresthesias a little bit better. Some hypotension and bradycardia overnight due to anesthesia and pain meds. Physical Exam Physical Exam: Constitutional: Alert, nontoxic HEENT: Mucous membranes moist. Neck in [place] cervical collar, DEVEN drain anterior neck Lungs: Clear to auscultation, decreased, no wheezes rales or rhonchi CV: S1-S2, regular Abdomen: Soft, nontender, nondistended Extremities: No significant edema Neuro: Left upper extremity weakness improving, paresthesias improving Psych: Cooperative, normal mood Results & Data Results & Data Vital Signs (Past 12 Hours) Vital Signs Temp Pulse Pulse Resp BP Pulse Ox O2 Del Method 01/18/25 09:10 115/79 01/18/25 09:10 36.7 C 72 18 115/79 98 Room Air 01/18/25 07:27 68 15 97 Room Air 01/18/25 07:10 36.7 C 54 L 18 97/63 L 96 Room Air 01/18/25 05:09 36.5 C 51 L 18 109/72 97 Nasal Cannula 01/18/25 03:53 68 18 98 Nasal Cannula 01/18/25 03:12 36.6 C 57 L 18 100/63 98 Nasal Cannula 01/18/25 01:47 121/81 01/18/25 01:10 36.7 C 55 L 18 109/68 97 Nasal Cannula 01/18/25 00:52 105/68 01/18/25 00:49 68 18 97/65 L 96 Nasal Cannula 01/17/25 23:26 69 16 93 Nasal Cannula 01/17/25 23:10 36.8 C 60 18 98/63 L 96 Nasal Cannula O2 Flow Rate 01/18/25 09:10 01/18/25 09:10 01/18/25 07:27 01/18/25 07:10 01/18/25 05:09 2 01/18/25 03:53 2 01/18/25 03:12 2 01/18/25 01:47 01/18/25 01:10 01/18/25 00:52 01/18/25 00:49 2 01/17/25 23:26 2 01/17/25 23:10 2 Diagnostic Findings Reviewed imaging, laboratory and diagnostic studies. Pertinent findings as below. WBCs 12.1 Hemoglobin 10.8 BMP stable (2) Mild intermittent asthma Asthma complication type: uncomplicated Qualified Code(s): J45.20 - Mild intermittent asthma, uncomplicated
[2025-01-18] MEDS: POTASSIUM CHLORIDE CRTAB 20 MEQ TABCR PO STA (11:43)
[2025-01-19 07:27] VITALS: BP 109/72; RESP 16; TEMP 98.2
[2025-01-19 07:30] LABS: Hematocrit (blood only) 32.5 % (37.0-47.0); Hemoglobin 10.9 g/dl (12.0-16.0)
[2025-01-19 07:56] VITALS: PULSE 61; O2SAT 96
--- NOTE | 2025-01-19 08:33 | Orthopedic Progress Note ---
Date of Service January 19, 2025 Assessment & Plan (1) Herniation of cervical intervertebral disc with radiculopathy: Plan: At this time we will continue to this time she is quite stable improving appropriately. She is safe for discharge per Ortho. Admission and Anticipated Discharge Date Admission Date: January 16, 2025 Subjective Neck symptoms improved. Still some modest tingling to the left index finger. Otherwise ambulating well. Swallowing well. No hoarseness. Physical Exam Physical Exam: Patient is good strength testing. Appears comfortable. Results & Data Vital Signs (Past 12 Hours) Vital Signs Temp Pulse Resp BP Pulse Ox O2 Del Method 01/19/25 07:55 61 16 96 Room Air 01/19/25 07:25 36.8 C 56 L 16 109/72 95 Room Air 01/19/25 04:00 64 17 96 Room Air 01/19/25 03:28 36.5 C 76 18 105/70 95 Room Air 01/18/25 23:38 64 18 96 Room Air 01/18/25 23:18 36.6 C 55 L 16 112/76 96 Room Air
--- NOTE | 2025-01-19 09:42 | Electrocardiogram Report ---
Test Reason : Blood Pressure : */* mmHG Vent. Rate : 48 BPM Atrial Rate : 48 BPM P-R Int : 140 ms QRS Dur : 76 ms QT Int : 476 ms P-R-T Axes : 41 25 18 degrees QTcB Int : 425 ms Sinus bradycardia Otherwise normal ECG When compared with ECG of 25-Apr-2023 14:23, Vent. rate has decreased by 41 bpm Confirmed by Kalpesh Thomas ([id number]) on 01/19/2025 9:42:35 AM Referred By: REFERRED SELF Confirmed By: Kalpesh Thomas
--- NOTE | 2025-01-19 10:06 | Discharge Summary ---
Discharge Summary Date of Service January 19, 2025 Principal Dx & Hospital Course #1 = Principal Diagnosis (1) Cervical radiculopathy: (2) Herniation of intervertebral disc at C6-C7 level: (3) Mild intermittent asthma: (4) Anxiety: (5) Acute blood loss as cause of postoperative anemia: Plan Patient is 29-year-old female presented emergency room with severe neck and left arm pain and numbness and weakness. Imaging revealed significant herniation C6- C7 disc with radiculopathy and cord/nerve compression. Patient was admitted to the hospital. Started on steroids. When also started on oral and IV pain medication. Orthospine consultation was obtained. She was evaluated by orthopedics. Recommended surgical intervention. Patient underwent anterior cervical discectomy with bilateral foraminotomies and excision of the herniated disc at C6-C7, anterior cervical arthrodesis and placement of a spear cage and plates and screws on 01/17/2025. Her postoperative course was uneventful. She did have some blood loss but hemoglobin remained stable postoperatively. Her pain was controlled and significantly improved steadily throughout her postoperative course. On the day of discharge she was tolerating her diet. Tolerating oral medications. Had been up and ambulating in the halls with her . Had been evaluated by orthospine, drain was removed and given instructions for outpatient follow-up. She be discharged home to follow-up with her PCP and orthopedic spine. Notes For Next Care Provider Follow-up with orthopedic spine Medication Changes From Visit Tramadol for pain Baclofen for muscle spasm and pain Neurontin for pain Admission HPI Per Admitting Provider This is a 29 y/o female with hx of PTSD, anxiety, and mild intermittent asthma who presented to the ED today with progressive neck pain x 8 days. Pt reports waking up last Thursday with pain in her left neck/upper back that felt like she slept wrong. She took ibuprofen 800 mg and initially had some relief. However, since then, then pain has continued to worsen in severity. It is now to the point that she has to take ibuprofen 800 mg just to be able to get out of bed. She has been alternating acetaminophen and ibuprofen without significant relief. She also tried naproxen, which didn't help. Ice felt like it made things worse so she has been using heat. Also tried various stretches she found online in hopes that something would help. Pain is radiating down her left arm. Over the last few days, she noted weakness in her left arm, specifically noting that she has dropped things even those that are light. Over the last 24-48 hours, she has developed numbness and tingling in the left thumb/2nd/3rd fingers and dorsal hand. She does not recall any prior injury to her neck although she was lifting heavier things over the last week in preparation for her wedding two days ago. She has no history of similar pain in the past. She is right-hand dominant. 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 Admission Exam Per Admitting Provider See H&P Discharge Exam Constitutional: Alert HEENT: Mucous membranes moist. Dry, clean surgical dressing anterior neck Lungs: Clear to auscultation, decreased, no wheezes rales or rhonchi CV: S1-S2, regular Abdomen: Soft, nontender, nondistended Extremities: No significant edema Neuro: Left arm weakness significantly improved with good range of motion and strength against gravity, paresthesias significantly improved Psych: Cooperative, normal mood Updated Medication List Medication Instructions Recorded Confirmed Type clonazepam 0.5 mg tablet (Klonopin) 0.5 mg PO HS PRN Anxiety 01/16/25 01/16/25 History magnesium 200 mg tablet 200 mg PO DAILY 01/16/25 01/16/25 History baclofen 10 mg tablet 10 mg PO TID PRN muscle spasm #30 01/19/25 Rx tabs gabapentin 300 mg capsule 300 mg PO TID PRN arm 01/19/25 Rx pain/numbness #30 caps tramadol 50 mg tablet 100 mg (2 x 50 mg) PO Q6H PRN pain 01/19/25 Rx #30 tabs Hospital Stay Data Consultations 01/16/25 15:55 ED Decision to Admit Stat 01/16/25 18:10 Consult Orthopedic Spine Surgery Routine Procedures Performed Operation Date: 01/17/25 11:50 Actual Procedures p C6-C7 Anterior Cervical Discectomy Fusion(Not Applicable) - Hiren Yee, Diagnostic Imagining Performed 01/16/25 08:55 CT cervical spine wo con Stat 01/16/25 11:37 MR cervical spine wo con Stat 01/17/25 [place] cervical 2-3V Routine Reviewed imaging, laboratory and diagnostic studies. Pertinent findings as below. Hemoglobin 10.9, stable postoperatively Pending Results Patient Have Any Pending Studies at Discharge: No Discharge Instructions Given to Patient (Per Discharging Provider) ACTIVITY RECOMMENDATIONS: SELF CARE INSTRUCTIONS AFTER CERVICAL FUSIONS 1. No smoking. Smoking drastically decreases the chance of a solid fusion. 2. No bending, lifting more than 5 pounds, or twisting (roll like a log when turning in bed). 3. You may shower 3 days after surgery. Thoroughly dry wound. Do not soak in the tub. 4. Cervical collar: Must be worn at all times including sleeping. You may remove the brace only to bath, eat and if you are sitting in a recliner. 5. Please walk as much as you can for exercise. Gradually increase the distance that you walk as your endurance increases. 6. You may return to previous diet. SPECIAL CARE INSTRUCTIONS: VERY IMPORTANT TO READ AND REVIEW A. Do not take any anti-inflammatory medications (i.e. Indocin, Advil, Aspirin, Naprosyn, Aleve, Motrin, etc.) as these may inhibit the chance of a solid fusion. Tylenol is okay to take. B. Your surgical incision has been closed with a cosmetic suture under the skin that will dissolve in about 6 weeks. In 14 days, you can use a pair of clean scissors and cut the suture that is left outside of the skin at the ends of your incision. C. Complications are uncommon, but please contact us if you have any signs or symptoms of: 1. wound infection (fever higher than 102.5 degrees F, redness, separation of wound, drainage, or increasing pain from the incision) 2. blood clots in legs (pain, swelling, redness and warmth in legs) 3. urinary tract infection (fever higher than 102.5 degrees, burning upon urination or increased frequency of urination) 4. nerve problems (inability to walk on your toes or heels, numbness, loss of bowel or bladder control) 5. any other symptoms that concern you. D. Please call the office at if you have any concerns or questions about your operation or recovery. MANAGING PAIN AFTER SPINAL SURGERY 1. Narcotic medication is intended for short-term use and will be provided for surgical pain. Surgical pain usually lasts for a period of 4-6 weeks. Narcotic medication includes Percocet, Vicodin, Darvocet, Tylenol #3 or Lortab. 2. Longer-term pain is more appropriately treated with non-narcotic medication such as Tylenol ES. 3. Muscle spasm is not appropriately treated with narcotics. Muscle relaxers such as Soma, Flexeril or Skelaxin can be used along with Tylenol ES. 4. Remember that we all live with some "aches and pains". This is not unusual or uncommon after an injury or as we get older. 5. We will provide appropriate medication within the normal guidelines of their prescribed use. We will also be very cautious and aware of potential abuse and extended duration of patients' medication needs. 6. Please allow 2-3 days to process refills. Prescriptions will not be mailed but must be picked up at the office. FOLLOW UP VISIT: Keep your scheduled follow-up appointment. Any questions, please call the office at . Total Time Total Time Spent Total Time Spent (In Minutes): 24
== END 2025-01-19 12:03 | disposition home or self-care (01) | DRG 472 ==
LOC: ED 08:00 → 3E 16:32 → SUATTDRO 16:32 → 3E 17:33